=== PATIENT | female | born 1980 | race Two or more races ===

== ENCOUNTER 2024-09-28 12:37 | Outpatient (REF) | payer MEDICARE, SELFPAY ==
--- OUTSIDE RECORDS SUMMARY | 2024-09-28 13:33 | XMS_ITS | Encounter Summary ---
Author Organization [facility], Address [address] [place] [address] Phone Care Team Providers Care Sole Stapler Welt Name Role Phone Unavailable Primary Care Provider Unavailabl e Encounter Details Date Type Department Care Team (Late st Contact Info) Description 08/08/2022 Documentation Only [facility], - [place] [address] [place] [phone] Edouard Mccain MD Social History Tobacco Use Types Packs/Day Years Used Date Smoking Tobacco: Never Alcohol Use Standard Drinks/Week Comments No 0 (1 standard drink = 0.6 oz pur e alcohol) Comments Unknown Sex and Gender Information Value Date Recorded Sex Assigned at Not on file Legal Sex Female 4:32 PM EST Gender Identity Not on file Sexual Orientation Not on file documented as of this encounter Plan of Treatment Not on file documented as of this encounter Visit Diagnoses Not on filedocumented in this encounter
--- OUTSIDE RECORDS SUMMARY | 2024-09-28 13:33 | XMS_ITS | Encounter Summary ---
Author Organization [employer] Address [address] [place] [address] 7 [place] [address] Care Team Providers Care Physician Assistant Primary Care Name Role Phone Roberto Mcgrath MD Primary Care Prov ider Reason for Visit * Reason Onset Date Comments Notes 06/04/2022 Encounter Details Date Type Department Care Team (Late st Contact Info) Description 06/04/2022 Telephone [facility] [address] [place] [address] Roberto Mcgrath MD [address] [place] [address] Notes Social History Tobacco Use Types Packs/Day Years Used Date Smoking Tobacco: Never Assessed Comments Unknown Sex and Gender Information Value Date Recorded Sex Assigned at Female 01/13/2022 10:36 AM EDT Legal Sex Female 10:36 AM EDT Gender Identity Female 01/13/2022 10:36 AM EDT Sexual Orientation Don't know 01/13/2022 10 :36 AM EDT documented as of this encounter Miscellaneous Notes * Telephone Encounter - Marques Adorno - 06/04/2022 10:06 AM EDT Tc from Venessa with [facility] requesting Monogram notes and a pap smear notes. Venessa would like the most recent notes from pcp as well. Venessa states that medical records was no answer. Please contact venessa at [phone] documented in this encounter Plan of Treatment Upcoming Encounters Date Type Department Care Team (Late st Contact Info) Description 11/01/2024 10:15 AM EDT Office Visit [facility] [address] [place] [address] Manolo An MD [address] [place] [address] documented as of this encounter Visit Diagnoses Not on filedocumented in this encounter Care Teams Physician Assistant Primary Care Relationship Specialty Start Date End Date Roberto Mcgrath MD [address] [place] [address] PCP - General Internal Medicine 05/03/19 documented as of this encounter
--- OUTSIDE RECORDS SUMMARY | 2024-09-28 13:33 | XMS_ITS | Clinical Summary ---
Demographics Address [address] [place] [address] Mobile Phone Home Phone Preferred Language Moldovan; Castilian Marital Status Shinto Affiliation Unknown Race Unknown Ethnic Group or Author Organization [facility] Address [address] [place] [address] Care Team Providers Care Social Worker School Name Role Phone PcpVasile/Surg Primary Care Provider U navailable Allergies No known active allergies Medications Medication Sig Dispensed Refills Start Date End Date Status NEXPLANON 68 MG IMPL subcutaneous implant insert 1 Dose into specified location once. 0 02/04/2017 Active calcium acetate (PHOSLO) 667 MG tablet Take 2 tablets by mouth 3 (three) times a day before meals. 3 12/17/2016 Active Blood Pressure Monitoring KitIndications:CKD (chronic kidney disease), stage IV ([facility]LY [facility]),Hypertension, renal disease,Morbid obesity due to excess calories (FORMERLY [facility]) Check BP 3-4 times a week 1 each 0 03/25/2017 Active pantoprazole (PROTONIX) 40 MG tablet Take 1 tablet (40 mg total) by mouth daily. 30 tablet 3 12/14/2017 Active amLODIPine (NORVASC) tablet 5 mg Take 10 mg by mouth daily. 0 Active SENSIPAR 60 MG tablet 0 01/01/2018 Active ondansetron (ZOFRAN) 4 MG tablet Take 1 tablet (4 mg total) by mouth every 4 (four) hours as needed for nausea. 30 tablet 1 01/06/2018 Active Cyanocobalamin (VITAMIN B-12) [address] 1 tablet under the tongue daily. 90 tablet 3 01/06/2018 Active thiamine 100 MG tablet Take 1 tablet (100 mg total) by mouth daily. 90 tablet 0 01/13/2018 Active lidocaine-prilocaine (EMLA) cream 0 02/08/2018 Active calcium citrate (CALCITRATE) 950 MG tablet Take 1 tablet (950 mg total) by mouth 2 (two) times a day. 120 tablet 3 02/09/2018 Active Active Problems Problem Noted Date Diagnosed Date BMI 40.0-44.9, adult 02/11/2018 Hiatal hernia with GERD 12/29/2017 S/P laparoscopic sleeve philip rectomy with HHR (Reza, 12/29/2017) 12/29/2017 Hemodialysis patient 12/14/2017 Obstructive sleep apnea 09/08/2017 Hypersomnia 07/21/2017 Secondary hyperparathyroidism of renal origin CKD (chronic kidney disease), stage IV 7 Hypertension, renal disease 11/19/2016 Morbid obesity due to excess calories 11/19/2016 Status post repeat low transverse secti on 10/29/2013 Resolved Problems Problem Noted Date Diagnosed Date Resolved Date C. difficile diarrhea 01/13/20182017 BMI 45.0-49.9, adult 05/25/2017 018 Metabolic acidosis, increased anion gap 03/25/2017 05/25/2017 Immunizations Name Administration Dates Next Due Influenza Quad (Fluarix/Fluz one/FluLaval) 0.5mL (SD-IIV4) 03/25/2017 Pneumococcal Conjugate PCV13 11/19/2016 Pneumococcal Polysaccharide PPSV23 03/30/2018, Tdap 11/19/2016 Family History Medical History Relation Name Comments No Sig Med Hx Brother Diabetes Father Hypertension Father Kidney disease Father Sleep apnea Father Diabetes Maternal Grandmother Kidney failure Maternal Uncle Diabetes Mother Hypertension Mother Obesity Mother Sleep apnea Mother Diabetes Paternal Grandfather Hypertension Paternal Grandfather Diabetes Paternal Grandmother No Sig Med Hx Sister 1 No Sig Med Hx Sister 2 No Sig Med Hx Sister 3 Breast cancer Neg Hx Cancer Neg Hx Colon cancer Neg Hx Relation Name Status Comments Brother Alive Father Alive Maternal Grandfather Alive Maternal Grandmother Maternal Uncle Alive Mother Alive Paternal Grandfather Paternal Grandmother Sister 1 Alive Sister 2 Alive Sister 3 Alive Social History Tobacco Use Types Packs/Day Years Used Date Smoking Tobacco: Never Smokeless Tobacco: Never Tobacco Cessation:Counseling Given: Yes Alcohol Use Standard Drinks/Week Comments No 0 (1 standard drink = 0.6 oz pur e alcohol) Sex and Gender Information Value Date Recorded Sex Assigned at Female 03/18/2018 11:19 AM EST Gender Identity Not on file Sexual Orientation Not on file Last Filed Vital Signs Vital Sign Reading Time Taken Comments Blood Pressure 121/79 03/30/2018 1:49 PM EST Pulse 81 03/30/2018 1:49 PM EST Temperature 36.8 C (98.2 F) 03/30/2018 1:49 PM EST Respiratory Rate 16 03/30/2018 1:49 PM EST Oxygen Saturation 99% 03/30/2018 1:49 PM EST Inhaled Oxygen Concentration - - Weight 103.9 kg (229 lb) 03/30/2018 1:49 PM EST Height 162.6 cm (5' 4 ) 03/30/2018 1:49 PM EST Body Mass Index 39.31 03/30/2018 1:49 PM EST Plan of Treatment Health Maintenance Due Date Last Done Comments Hepatitis B Vaccines (1 of 3 - 3-dose series) 1980 Hepatitis C Screening 1980 COVID-19 Vaccine (#1) 1980 Depression Screening 1992 Preventative Health Evaluation 1998 Cervical Cancer Screening (Pap Smear) 2001 Influenza Vaccine (#1) 2024 03/25/2017 DTap / Tdap / Td (2 - Td or Tdap) 11/19/2026 11/19/2016 Pneumococcal Vaccine (4 of 4 - PPSV23 or PCV20) 2045 03/30/2018, 11/19/2016, 10/27/2013 RSV Ped < 20 months Aged Out No longe r eligible based on patient's age to complete this topic Goals Goal Patient Goal Type Associated Problems Recent Progress Patient-Stated? Author Weight (lb) < 90.7 kg (200 lb) Weight 229 lb (103.9 kg)(03/30/2018 1:49 PM EST) No Ama Morales, MS RDN Note: 05/14/17: lost 17 lbs Since initial visit. 09/08/17: Lost 2 lbs since july 2017. Wt. Today 264 lb. 10/06/17: due for dialysis tomorrow. Wt. Today is 272 lb + 8 lbs. Guarantor Name Account Type Relation to Patient Date of Phone Billing Address Nguyne Singer Personal/Family Self 1980 [id number] (Home) [address] [place] [address] Nguyen Singer Personal/Family Self [address] [place] [address] Nguyen Singer Personal/Family Self 1980 [id number] (Home[address] [place] [address] Nguyen Singer Personal/Family Self 1980 [id number] 1 (Home) [address] [place] [address] Nguyen Singer [facility] Self 1980 [phone] (Home) [address] [place] [address] Advance Directives For more information, please contact: [phone] Latest Code Status on File Code Status Date Activated Date Inactivated Comments Full Code 12/29/2017 1:39 PM 12/31/2017 6:00 PM Thi s code status was ascertained in the following way: discussion with patient . Code Status History Code Status Date Activated Date Inactivated Comments Full Code 10/26/2013 7:11 AM 10/29/2013 6:06 PM This code status was ascertained in the following way: discussion with patient. Full Code 09/12/2013 12:34 PM 09/12/2013 8:19 PM This code status was ascertained in the following way: discussion with patient. Care Teams Social Worker School Relationship Specialty Start Date End Date Pcp, Vasile Millan/SurgMD PCP - General Maintenance Shop Technician 01/03/18
--- OUTSIDE RECORDS SUMMARY | 2024-09-28 13:33 | XMS_ITS ---
Author Name [facility] Organization Unknown History of Medication Use Medication Directions Dispensed Refills Start Date End Date Stat us amLODIPine (NORVASC) 10 MG tablet Take 5 mg by mouth. 03/25/2017 act stephani multivitamin (multivitamin) Tab tablet Take 1 tablet by mouth daily. active Problems Problem Status Onset Date Problem Type Date of Resoluti on Source ESRD (end stage renal disease) active 2018-10-20 [facility]Act [facility] Hypertension active ProblemAct [facility] Awaiting organ transplant active 2018-10-20 ProblemAct [facility] Secondary hyperparathyroidism active ProblemAct [facility]
--- OUTSIDE RECORDS SUMMARY | 2024-09-28 13:33 | XMS_ITS | Clinical Summary ---
Author Organization [facility] Address [address] [place] [address] Care Team Providers Care Teletypist Name Role Phone Yonis Fitzpatrickah ANDREW Unavailable [phone] Declan De La Cruz MD Unavailable Rocky Dow MD Unavailable [phone] Felton Hill MD Unavailable [phone] Vito Cobb MD Unavailable Unavailable John Rea NP Primary Care Provider Allergies No known active allergies Medications Cholecalciferol (VITAMIN D-3 PO) Take by mouth. Pt unsure of dose Active amLODIPine (NORVASC) 10 MG tablet Take 5 mg by mouth. 03/25/2017 Active calcium acetate (PHOSLO) 667 MG tablet Take 2,001 mg by mouth 3 (three) times a day with meals. 12/17/2016 Active cyanocobalamin (VITAMIN B-12) 1000 MCG tablet Take 1,000 mcg by mouth daily. Active multivitamin (multivitamin) Tab tablet Take 1 tablet by mouth daily. Active Etelcalcetide HCl (PARSABIV IV) Infuse into a venous catheter. Active Active Problems Problem Noted Date Diagnosed Date ESRD (end stage renal disease) 10/20/2018 Awaiting organ transplant 10/20/2018 Secondary hyperparathyroidism Hypertension Overview (10/20/2018): Ptnt reports that she developed hypertension with her first in early . No h/o pre-eclampsia. Family History Medical History Relation Name Comments No Known Problems Brother No Known Problems Daughter Diabetes Father Hypertension Father Diabetes Mother No Known Problems Sister 1 No Known Problems Sister 2 No Known Problems Sister 3 No Known Problems Son 1 No Known Problems Son 2 No Known Problems Son 3 Relation Name Status Comments Brother Daughter Father Mother Sister 1 Sister 2 Sister 3 Son 1 Son 2 Son 3 Social History Tobacco Use Types Packs/Day Years Used Date Smoking Tobacco: Former Cigarettes Q uit: 2004 Smokeless Tobacco: Never Comments:Never a frequent sm oker, only socially. Alcohol Use Standard Drinks/Week Comments No 0 (1 standard drink = 0.6 oz pur e alcohol) Comments No Sex and Gender Information Value Date Recorded Sex Assigned at Not on file Legal Sex Female 1:16 PM EDT Gender Identity Not on file Sexual Orientation Not on file Last Filed Vital Signs Vital Sign Reading Time Taken Comments Blood Pressure 120/62 10/20/2018 12:05 PM EDT Pulse 73 10/20/2018 12:05 PM EDT Temperature 36.7 C (98 F) 10/20/2018 12:05 PM EDT Respiratory Rate 18 08/17/2017 5:46 PM EDT Oxygen Saturation 100% 10/20/2018 12:05 PM EDT Inhaled Oxygen Concentration - - Weight 101 kg (222 lb) 10/20/2018 12:13 PM EDT Height 162.6 cm (5' 4 ) 10/20/2018 12:13 PM EDT Body Mass Index 38.11 10/20/2018 12:13 PM EDT Plan of Treatment Health Maintenance Due Date Last Done Comments DTaP/Tdap/Td Vaccines (1 - Tdap) 1999 Pneumococcal Vaccine: Pediatric (0-5 Years) and At-Risk Patients (6 to 49 Years) (1 of 2 - PCV) 1999 Hepatitis B Vaccines (1 of 3 - Risk Dialysis 4-dose series) 2000 Pap Smear (Ages 21-65) 2001 Mammogram 2020 COVID-19 Vaccine ( - 2023-2 5 season) 2023 Influenza Vaccine 10/14/2024 03/25/2017 HIV Screening Completed 10/20/2018, 11/24/2017 Hepatitis C Virus Screening Completed 09/2018, 10/20/2018, 11/24/2017 HPV Vaccines Aged Out No longer eligi ble based on patient's age to complete this topic Procedures Procedure Name Priority Date/Time Associated Diagnosis Comments HIV 1/2 AG/AB CMIA REFLEX TO CONFIRMATION Routine 10/20/2018 3:20 PM EDT Awaiting organ transplant End stage renal disease (HCC) HEPATITIS C VIRUS (HCV) RT-PCR QUANTITATIVE Routine 10/20/2018 3:20 PM EDT Awaiting organ transplant End stage renal disease (HCC) from Last 3 Months or Most Recently Relevant to Health Maintenance Results * HIV 1/2 Ag/Ab CMIA Reflex to Confirmation (10/20/2018 3:20 PM EDT) HIV Ag/Ab, 4th Gen NON-REACT RICHARDSON NON-REACT RICHARDSON [employer] NL1 Comment: HIV-1 antigen and HIV-1/HIV-2 antibodies were not detected. There is no laboratory evidence of HIV infection. PLEASE NOTE: This information has been disclosed to you from records whose confidentiality may be protected by state law. If your state requires such protection, then the state law prohibits you from making any further disclosure of the information without the specific written consent of the person to whom it pertains, or as otherwise permitted by law. A general authorization for the release of medical or other information is NOT sufficient for this purpose. For additional information please refer to http://education.Lodgeo.Loudr/faq/PFM417 (This link is being provided for informational/ educational purposes only.) The performance of this assay has not been clinically validated in patients less than 2 years old. Blood specimen (specimen) Blood specimen / Unknown 10/20/2018 3:20 PM EDT 10/20/2018 3:21 PM EDT Narrative [facility] - 10/24/2018 2:31 AM EDT FASTING:NO FASTING: NO Resulting Agency Comment Performing Organization Information: Site ID: [id number] Name: [employer] Address: [address] [place] [phone] Director: Waqar Coffey MD Rene Hou MD LAB BLOOD ORDERABLES Final Res ult Performing Organization Address [facility] Co de Phone Number [facility] [address] [place] [phone] * HCV RT-PCR Quantitative (10/20/2018 3:20 PM EDT) [facility] Signature HCV RNA (IU/mL) <15 NOT DETECTED NOT DETECTED IU/mL [facility] HCV RNA (log10) <1.18 NOT DETECTED NOT DETECTED Log IU/mL [facility] Comment: This test was performed using Real-Time Polymerase Chain Reaction. Reportable Range: 15 IU/mL to 100,000,000 IU/mL (1.18 Log IU/mL to 8.00 Log IU/mL). The analytical performance characteristics of this assay have been determined by [employer]. The modifications have not been cleared or approved by the FDA. This assay has been validated pursuant to the CLIA regulations and is used for clinical purposes. For more information on this test, go to: http://education.Versus/faq/SGL96j1 (This link is being provided for informational/ educational purposes only.) Blood specimen (specimen) Blood specimen / Unknown 10/20/2018 3:20 PM EDT 10/20/2018 3:21 PM EDT Narrative [facility] - 10/24/2018 2:31 AM EDT FASTING:NO FASTING: NO Resulting Agency Comment Performing Organization Information: Site ID: [id number] Name: [employer] Address: [address] [place] [phone] Director: Waqar Coffey MD Rene Hou MD LAB BLOOD ORDERABLES Final Res ult Performing Organization Address [facility] Co de Phone Number [facility] [address] [address] from Last 3 Months or Most Recently Relevant to Health Maintenance Insurance MEDICARE PART A & B MEDICAID OUT OF STATE [facility] [place] MEDICARE PART A & B MEDICAID OUT OF STATE [facility] [place] Advance Directives * Full Code (Latest Code Status on File) Date Activated Date Inactivated Comments 02/22/2016 6:04 AM 02/22/2016 12:03 PM Care Teams Teletypist Relationship Specialty Start Date End Date John Rea NP [address] [place] [address] PCP - General 03/25/22 Paradise Fitzpatrick APRN [address] [place] [address] Nurse Practitioner Surgery, Transplant 11/24/17 Declan De La Cruz MD [address] [place] [address] Referring Provider Nephrology 11/24/17 Rocky Dow MD [address] [place] [address] Physician Pulmonary Disease 11/24/17 Felton Hill MD [address] [place] [address] Physician Cardiovascular Disease 11/24/17 Vito Cobb MD [address] [place] [address] Physician Surgery, Bariatric 11/24/17
--- OUTSIDE RECORDS SUMMARY | 2024-09-28 13:34 | XMS_ITS | Clinical Summary ---
Author Organization [address] Address [address] [place] [phone] Phone Care Team Providers Care Layboy Tender Name Role Phone Brianda Bourgeois MD Primary Care Pr ovider Immunizations Name Administration Dates Next Due Pfizer SARS-CoV-2 COVID-19, mRNA, LNP-S, preservative free 07/19/2020,06/28/2020 Surgical History Surgery Date Site/Laterality Comments SECTION PROCEDURE: SECTION AV FISTULA PLACEMENT 02/2016 Right PROCEDURE:AV FISTULA PLACEMENT GASTRIC RESTRICTION SURGERY 12/29/2017 N/A PROCEDURE:GASTRIC RESTRICTION SURGERY;COMMENT:Procedure: LAPAROSCOPIC SLEEVE GASTRECTOMY; Surgeon: Vito Cobb Jr., MD; Location: [facility]PER[facility] RO[facility]; Service: Bariatrics; Laterality: N/A; UPPER GASTROINTESTINAL ENDOSCOPY 12/29/2017 N/A PROCEDURE:UPPER GASTROINTESTINAL ENDOSCOPY;COMMENT:Procedure: UPPER ENDOSCOPY-EGD; Surgeon: Vito Cobb Jr., MD; Location: [facility]; Service: Bariatrics; Laterality: N/A; SECTION 10/26/2013 N/A PROCEDURE: SECTION;COMMENT:Procedure: OB SECTION REPEAT; Surgeon: Cat Vazquez MD; Location: [facility] DELIVERY ROOM; Service: Obstetrics; Laterality: N/A; Medical History Medical History Date Comments Kidney disease DX:Kidney diseas e;COMMENT:one kidney smaller, side unknown Hypertension DX:Hypertension; COMMENT:hydralazine Asthma DX:Asthma Obesity DX:Obesity Anemia DX:Anemia Sleep apnea DX:Sleep apnea Sleep apnea, obstructive DX:Slee p apnea, obstructive;COMMENT:uses CPAP End stage renal disease (CMS /HCC V24, CMS/HCC V28) DX:End stage renal disease (HCC);COMMENT:AV Fistula, HD mon,wed,fri Family History Medical History Relation Name Comments No Known Problems Brother Diabetes Father Hypertension Father Kidney disease Father Sleep apnea Father Diabetes Maternal Grandmother Diabetes Mother Hypertension Mother Obesity Mother Sleep apnea Mother Kidney failure Mother's Brother Diabetes Paternal Grandfather Hypertension Paternal Grandfather Diabetes Paternal Grandmother No Known Problems Sister 1 No Known Problems Sister 2 No Known Problems Sister 3 Breast cancer Neg Hx Cancer Neg Hx Colon cancer Neg Hx Relation Name Status Comments Brother Alive Father Alive Maternal Grandfather Alive Maternal Grandmother Mother Alive Mother's Brother Alive Paternal Grandfather Paternal Grandmother Sister 1 Alive Sister 2 Alive Sister 3 Alive Social History Tobacco Use Types Packs/Day Years Used Date Smoking Tobacco: Never Smokeless Tobacco: Never Alcohol Use Standard Drinks/Week Comments No 0 (1 standard drink = 0.6 oz pur e alcohol) Comments Unknown Sex and Gender Information Value Date Recorded Sex Assigned at Not on file Legal Sex Female 10:23 PM EST Gender Identity Not on file Sexual Orientation Not on file Obstetrics History Plan of Treatment Health Maintenance Due Date Last Done Comments Breast Cancer Screening 1980 Hepatitis B Vaccines (1 of 3 - 19+ 3-dose series) 1999 Cervical Cancer Screening: P ap Smear 2001 COVID-19 Vaccine (3 - Pfizer risk series) 08/16/2020 07/19/2020, 06/28/2020 Cholesterol Screening (Lipid Panel) 01/08/2024 Depression Screening 01/08/2024 HIV Screening 01/08/2024 Medicare Annual Wellness Visit 01/08/2024 Social Influencers of Health Screening 01/08/2024 Influenza Vaccine (#1) 2024 03/25/2017 DTaP,Tdap,and Td Vaccines (2 - Td or Tdap) 11/19/2026 11/19/2016 Pneumococcal Vaccine: Pediatrics (0 to 5 Years) and At-Risk Patients (6 to 49 Years) Aged Out 03/30/2018, 11/19/2016, 10/27/2013 No longer eligible based on patient's age to complete this topic Hepatitis C Screening Completed 04/14/2023 HIB Vaccines Aged Out No longer eligi ble based on patient's age to complete this topic HPV Vaccines Aged Out No longer eligi ble based on patient's age to complete this topic Hepatitis A Vaccines Aged Out No long er eligible based on patient's age to complete this topic IPV Vaccines Aged Out No longer eligi ble based on patient's age to complete this topic MMR Vaccines Aged Out No longer eligi ble based on patient's age to complete this topic Meningococcal ACWY Vaccine Aged Out N o longer eligible based on patient's age to complete this topic Meningococcal B Vaccine Aged Out No l onger eligible based on patient's age to complete this topic RSV Immunization Patients Under 20 months Aged Out No longer eligible b ased on patient's age to complete this topic Varicella Vaccines Aged Out No longer eligible based on patient's age to complete this topic Procedures Procedure Name Priority Date/Time Associated Diagnosis Comments HEPATITIS C SCREENING Routine 04/14/2023 from Last 3 Months or Most Recently Relevant to Health Maintenance Results * Hepatitis C Screening (04/14/2023) Pathologist [facility] Hepatitis C Screening Abstracted Historical Provider MD HEALTH MAINTENANCE Final Result from Last 3 Months or Most Recently Relevant to Health Maintenance Insurance [employer] MEDICARE ADVANTAGE MEDICAID - [place] Care Teams Layboy Tender Relationship Specialty Start Date End Date Brianda Bourgeois MD [address] [place] [id number] PCP - General 08/18/23
[2024-09-28 15:20] LABS: Alanine Aminotransferase 15 U/L (0-31); Albumin Level 4.5 g/dL (3.5-5.0); Alkaline Phosphatase 102 U/L (39-117); Aspartate Amino Transferase 37 U/L (5-31); Cholesterol 207 mg/dL (<200); HDL Cholesterol 51 mg/dL (>40); Total Protein 8.2 g/dL (6.5-8.0); Triglycerides 170 mg/dL (<150)
== END 2024-09-28 12:38 | disposition home or self-care (01) ==
LOC: HO.CHCLDS 12:37
PROVIDERS: Visit Provider Internal Medicine
DX: I15.0 Renovascular hypertension (principal)
CPT/HCPCS: 36415; 80061; 80076